=== PATIENT | female | born 1995 | race Two or more races ===

== ENCOUNTER 2025-06-05 03:34 | Inpatient (IN) ==
[2025-06-05] MEDS ORDERED: LIDOCAINE 1% LOCAL 20 ML VIAL INFIL PRN (04:04)
--- NOTE | 2025-06-05 04:07 | History & Physical Report ---
Date of Service June 05, 2025 Assessment & Plan (1) Encounter for supervision of normal in multigravida: Plan: Admit to L&D. EFM/toco. Labs. Offered epidural - ok if she desires. History of Present Illness Chief Complaint: contractions Primary Care Provider: MUNIRA PCP 30yo @ 42 10/30, came to L&D with contractions. and Delivery Plans Patient's children x 2 born with extra digits hands/feet, son webbing of fingers, fob has extra digit -suspected extra digits on this baby Carrier of SMA *FOB to be tested Allergies Allergy/AdvReac Type Severity Reaction Status Date / Time No Known Allergies Allergy Verified 06/05/25 04:10 Home Medications Medication Instructions Recorded Confirmed Type folic acid PO 12/07/24 06/04/25 History Patient History Medical History (Updated 06/04/25 @ 11:03 by Gayle Rosenthal LPN) Patient denies significant medical history Surgical History (Updated 12/07/24 @ 11:06 by Rosenda Goel) No history of previous surgery Family History (Updated 12/07/24 @ 11:08 by Rosenda Goel) Father Hypertension Mother Hypertension Stomach ulcer Daughter Extra digits born with extra digits hands and feet Son Extra digits born with extra digits hands and feet Webbed fingers Denies family history of Ovarian cancer Breast cancer Colorectal cancer Social History (Updated 12/07/24 @ 10:57 by Rosenda Goel) Smoking Status: Never smoker Do You Dip or Chew Tobacco: No; marital status: marital status details: Joaquín (39) Current Living Situation: Spouse and Family Current Living Situation Comment: lives with spouse, 2 children, no pets current occupational status: unemployed current occupation: unemployed Review of Systems All systems reviewed & are unremarkable except as noted in HPI & below Physical Exam Physical Exam: FHT Cat 1 [place] q 2-6 SVE 4-5/80/-3, bulging membranes Limited bedside ultrasound: cephalic presentation, placenta posterior Constitutional: WD/WN, vitals as above Respiratory: normal respiratory effort, lungs clear to auscultation no respiratory distress Cardiovascular: Rate/Rhythm: regular rate and regular rhythm Gastrointestinal (Abdomen): Inspection/Auscultation: abdomen normal to inspection Percussion/Palpation: abdomen soft; abdomen nontender Gravid. No s/s chorio or abruption. Skin: no rashes, warm and dry Psychiatric: A+Ox3, euthymic affect Results & Data Vital Signs (Past 12 Hours) Vital Signs Pulse BP 06/05/25 03:56 81 121/75 Coding Level of Care Code None Diagnoses Encounter for supervision of normal in multigravida Z34.80
[2025-06-05 04:31] LABS: Hematocrit (blood only) 35.3 % (37.0-47.0); Hemoglobin 12.4 g/dl (12.0-16.0); Mean Corpuscular Hemoglobin 30.7 pg (25.0-34.0); Mean Corpuscular Volume 87.4 fL (80.0-100.0); Platelet Count 151 K/uL (130-400); RDW Standard Deviation 42.8 fL (36.4-46.3); Red Blood Count 4.04 M/uL (4.20-5.40); White Blood Count 9.79 K/ul (4.8-10.8)
[2025-06-05] MEDS: LACTATED RINGER'S 1,000 ML IV PRN (04:39)
[2025-06-05] MEDS ORDERED: NALBUPHINE HCL INJ 10 MG/ML AMP IV PRN (05:14)
[2025-06-05] MEDS ORDERED: fentANYL 2 MCG/ML BUPIVacaine 0.125%-NSS 100ML BAG EPI PRN (05:14)
[2025-06-05] MEDS ORDERED: SODIUM CHLORIDE 0.9% PF INJ 10 ML VIAL EPI PRN (05:14)
[2025-06-05] MEDS ORDERED: ROPIVACAINE 0.5% PF 5 MG/ML 20 ML VIAL EPI PRN (05:14)
[2025-06-05] MEDS ORDERED: NALOXONE HCL 0.4 MG/1 ML VIAL/CARP IV PRN (05:14)
[2025-06-05] MEDS ORDERED: NALOXONE HCL 1 MG in SODIUM CHLORIDE 0.9% 1,000 ML IV PRN (05:14)
[2025-06-05] MEDS ORDERED: LIDOCAINE 2% MPF LOCAL 5 ML VIAL EPI PRN (05:14)
[2025-06-05] MEDS ORDERED: diphenhydrAMINE 50 MG/ML VIAL IV PRN (05:14)
[2025-06-05] MEDS ORDERED: ONDANSETRON INJ 2 MG/ML 2 ML VIAL IV PRN (05:14)
[2025-06-05] MEDS ORDERED: BUPIVACAINE 0.25% PF 30 ML VIAL EPI PRN (05:14)
--- NOTE | 2025-06-05 05:14 | Anesthesiology Consultation ---
Date of Service June 05, 2025 Assessment & Plan ASA ASA2 Proposed Anesthesia Anesthesia Type: Labor Epidural Risk / Benefits Reviewed With: PT / POA / Parent / Guardian, Accepts Plan and Informed Consent Obtained History Height/Weight Height: 5 ft 6 in Weight: 92.986 kg Allergies Allergy/AdvReac Type Severity Reaction Status Date / Time No Known Allergies Allergy Verified 06/05/25 04:10 Medications Home Medications Medication Instructions Recorded Confirmed Last Taken ferrous sulfate 325 mg (65 mg 325 mg PO DAILY 06/05/25 06/05/25 06/04/25 iron) tablet (iron) [id number] 1 mg 1 tab PO DAILY 06/05/25 06/05/25 06/04/25 tablet Active Medications Generic Name Dose Route Start Last Admin Trade Name Freq PRN Reason Stop Dose Admin Lactated Ringer's 1,000 mls @ 125 mls/hr 06/05/25 04:04 06/05/25 05:35 Lr IV 06/07/25 04:03 125 mls/hr .Q8H PRN Administration L&D Protocol Protocol Past Medical History Medical History Patient denies significant medical history Exercise / Class Metabolic Activity II 4-5 Yardwork/Stairs/Walk up hill Past Family History Family History Father Hypertension Mother Hypertension Stomach ulcer Daughter Extra digits born with extra digits hands and feet Son Extra digits born with extra digits hands and feet Webbed fingers Denies family history of Ovarian cancer Breast cancer Colorectal cancer Past Surgical History Surgical History No history of previous surgery Past Anesthesia History No Hx of Anesthesia Complications and No Family Hx of Anesthesia Complications History of PONV No Hx of PONV and No Hx of Motion Sickness Social History Smoking Status: Never smoker Do You Dip or Chew Tobacco: No Hx Alcohol Use: No Hx Substance Use: No substance use type: does not use Review of Systems denies fever/cough/ colds/ chest pain/ SOB/ ELLYN denies ELLYN Physical Exam Vital Signs Last Vital Signs Temp 36.8 C 06/05/25 04:09 Pulse 71 06/05/25 05:56 Resp 18 06/05/25 04:09 BP 105/64 06/05/25 05:52 Pulse Ox 98 06/05/25 05:56 ENMT Mouth: no TMJ abnormality and no dentition abnormality Thyromental Distance: > or= 3.5 Finger Breadths Mallampati Class: II Neck neck extension not limited Respiratory normal respiratory effort; no respiratory distress Auscultation: lungs clear to auscultation bilaterally Cardiovascular Rate/Rhythm: regular rate and regular rhythm Neurologic moves all extremities Psychiatric Orientation: alert and oriented x 3 Testing Laboratory Results 06/05/25 04:15
[2025-06-05] MEDS: BUPIVACAINE 0.25% PF 30 ML VIAL ONE (05:42)
[2025-06-05] MEDS: LIDOCAINE 2%/EPINEPHRINE 1:200,000 20 ML PF ONE (05:42)
[2025-06-05] MEDS: fentANYL 2 MCG/ML BUPIVacaine 0.125%-NSS 100ML BAG ONE (05:42)
[2025-06-05] MEDS: SODIUM CHLORIDE 0.9% PF INJ 10 ML VIAL ONE (05:56)
[2025-06-05] MEDS: BUPIVACAINE 0.25% PF 30 ML VIAL EPI STA (05:57)
[2025-06-05] MEDS: LIDOCAINE 2%/EPINEPHRINE 1:200,000 20 ML PF EPI STA (05:58)
[2025-06-05] MEDS: SODIUM CHLORIDE 0.9% PF INJ 10 ML VIAL EPI STA (05:58)
--- NOTE | 2025-06-05 06:56 | Labor Progress Brief Note ---
Date of Service June 05, 2025 Subjective Patient is comfortable with epidural. FHt Cat 1 [place] Q 9 SVE 6/100/-3 Will give pitocin to get better contraction pattern to allow baby to come down prior to ROM. Patient agreeable. Results & Data Vital Signs (Past 12 Hours) Vital Signs Temp Pulse Resp BP Pulse Ox 06/05/25 06:52 63 112/69 06/05/25 06:51 68 117/75 96 06/05/25 06:46 62 94 06/05/25 06:41 66 95 06/05/25 06:37 60 106/66 06/05/25 06:36 62 94 06/05/25 06:31 64 94 06/05/25 06:26 60 94 06/05/25 06:21 95 06/05/25 06:21 64 06/05/25 06:21 62 103/68 06/05/25 06:16 61 95 06/05/25 06:11 65 95 06/05/25 06:06 65 97 06/05/25 06:02 64 107/68 06/05/25 06:01 64 97 06/05/25 05:57 61 107/65 06/05/25 05:56 71 98 06/05/25 05:52 63 105/64 06/05/25 05:51 67 97 06/05/25 05:50 65 106/63 06/05/25 05:48 73 107/67 06/05/25 05:46 97 06/05/25 05:46 69 06/05/25 05:46 70 108/69 06/05/25 05:44 70 114/66 06/05/25 05:42 68 114/58 L 06/05/25 05:41 68 97 06/05/25 05:39 107 H 144/88 H 06/05/25 05:36 83 97 06/05/25 05:31 78 96 06/05/25 05:26 81 99 06/05/25 05:21 79 97 06/05/25 05:16 82 97 06/05/25 05:11 78 95 06/05/25 05:06 73 94 06/05/25 05:02 75 94 06/05/25 05:01 78 95 06/05/25 04:56 80 99 06/05/25 04:09 36.8 C 18 06/05/25 03:56 81 121/75 Coding Level of Care Code None
[2025-06-05] MEDS: OXYTOCIN 30 UNITS/NSS 30 UNITS/500 ML BAG IV PRN ×2 (07:50→12:50)
[2025-06-05] MEDS ORDERED: BENZOCAINE 20% SPRY 85 APPLN/85 GM CAN EXT PRN (12:11)
[2025-06-05] MEDS ORDERED: HYDROCORTISONE ACETATE 25 MG SUPP PR PRN (12:11)
[2025-06-05] MEDS ORDERED: OXYTOCIN 30 UNITS/NSS 30 UNITS/500 ML BAG IV PRN (12:11)
[2025-06-05] MEDS ORDERED: ACETAMINOPHEN 325 MG TAB PO PRN (12:11)
--- NOTE | 2025-06-05 12:14 | Delivery Summary ---
Vaginal Delivery Summary Date of Service June 05, 2025 Vaginal Delivery Summary and 2nd Degree LAC Patient progressed to 10 cm dilated, 100% effaced, +3 station posterior and intact perineum over 1 contraction to achieve delivery. Had a delivered without difficulty quickly followed by shoulders and body. was noted be vigorous upon delivery and a 1 minute delayed cord clamping was initiated. Cord was then doubly clamped and cut and remained on maternal abdomen. Cord blood obtained and attention turned to delivery of placenta was delivered intact with three-vessel cord with gentle cord traction. Inspection perineum vagina and cervix there is noted be a second-degree perineal laceration which was repaired with 3-0 Vicryl in the traditional crown stitch. Needle, sponge and instrument counts correct at completion of the case. Both mother and stable in the immediate postdelivery timeframe. No complications noted and blood loss per QBL in chart. [facility] Vaginal Delivery Charge Delivery Type Details: and 2nd Degree LAC
[2025-06-05] MEDS: DIPHTHER/TETAN/PERTUS Vaccine (Tdap, Adol/Adult) 0.5mL IM ONE (12:25)
--- NOTE | 2025-06-05 13:24 | Anesthesia Procedure Note ---
Date of Service June 05, 2025 Anesthesia Post Epidural Note Vital Signs Vital Signs: Temp Pulse Resp BP Pulse Ox 37.1 C 70 20 134/76 99 06/05/25 11:00 06/05/25 13:15 06/05/25 11:59 06/05/25 13:15 06/05/25 12:01 Notes Mental Status: alert / awake / arousable Nausea / Vomiting: adequately controlled Pain: adequately controlled Airway Patency, RR, SpO2: stable & adequate BP & HR: stable & adequate Hydration State: stable & adequate Neuraxial Anesthesia: was administered and sensory block is resolving Anesthetic Complications: no major complications apparent and Pt Satisfied with anesthetic care Epidural: Removed without complications and With tip intact
[2025-06-05] MEDS: IBUPROFEN 600 MG TAB PO PRN (20:23)
[2025-06-05] MEDS: DOCUSATE SODIUM 100 MG CAP PO SCH (20:23)
[2025-06-06 04:22] VITALS: O2SAT 97
[2025-06-06 07:46] LABS: Hematocrit (blood only) 32.8 % (37.0-47.0); Hemoglobin 11.2 g/dl (12.0-16.0)
[2025-06-06] MEDS: FERROUS SULFATE 325 MG TAB PO SCH (07:49)
[2025-06-06] MEDS: PRENATAL VITAMIN 1 TAB PO SCH (07:49)
--- NOTE | 2025-06-06 10:36 | Obstetrical Progress Note ---
Date of Service June 06, 2025 Assessment & Plan (1) Encounter for care and examination after delivery: Day 1 status uncomplicated vaginal delivery. Patient doing well in the any specific concerns. Stable for discharge as desired Subjective Ambulation: ambulating normally Voiding: no voiding problems Passing Gas:: Yes Diet Tolerance:: regular diet Lochia:: Moderate Patient doing well and denies any specific concerns Physical Exam Constitutional WD/WN, vitals as above Respiratory normal respiratory effort; no respiratory distress and no labored breathing Cardiovascular Extremities: no calf tenderness Gastrointestinal (Abdomen) Inspection/Auscultation: abdomen normal to inspection; abdomen not distended Percussion/Palpation: abdomen soft; abdomen nontender, no guarding and abdomen not rigid Genitourinary OB Exam Abdomen: + fundal height Fundus: + firm and + relation to umbilicus (Below); not tender or not boggy Results & Data Vital Signs (Past 12 Hours) Vital Signs Temp Pulse Resp BP Pulse Ox O2 Del Method 06/06/25 07:30 Room Air 06/06/25 07:30 36.8 C 73 18 116/70 Room Air 06/06/25 03:02 36.6 C 86 18 113/79 97 Room Air 06/05/25 23:22 36.8 C 59 L 18 101/65 99 Room Air
[2025-06-06 17:57] VITALS: BP 120/81; PULSE 75; RESP 16; TEMP 98.4
== END 2025-06-06 18:10 | disposition home or self-care (01) | DRG 807 ==
LOC: OPB 03:34 → 4S1 03:51 → 4E2 18:28